=== PATIENT | male | born 1940 | race Caucasian/White ===

== ENCOUNTER 2017-09-03 11:45 | Emergency (ER) | payer MEDICARE ==
[~2017-09-03] VITALS: Ht 182.9 cm; Wt 140.6 kg
[2017-09-03 12:35] LABS: BASOPHILS # (AUTO) 0.1 (0.0-0.1); BASOPHILS % 0.6 % (0.0-1.0); EOSINOPHILS # (AUTO) 0.3 (0.0-0.4); EOSINOPHILS % 3.8 % (0.0-6.0); HEMATOCRIT 46.5 % (38.2-49.6); LYMPHOCYTES # (AUTO) 1.2 (1.0-3.2); LYMPHOCYTES % 14.7 % (18.0-39.1); MEAN CORPUSCULAR HEMOGLOBIN 28.5 pg (28-32); MEAN CORPUSCULAR HGB CONC 32.3 g/dL (31-35); MEAN CORPUSCULAR VOLUME 88.2 fL (81-99); MONOCYTES # (AUTO) 0.6 (0.2-0.8); MONOCYTES % 8.1 % (4.4-11.3); NEUTROPHILS # (AUTO) 5.8 (2.1-6.9); NEUTROPHILS % 72.5 % (38.7-80.0); PLATELET COUNT 257 x10e3/uL (140-360); RED BLOOD COUNT 5.27 x10e6/uL (4.3-5.7); RED CELL DISTRIBUTION WIDTH 14.4 % (11.7-14.4)
[2017-09-03 12:40] LABS: INR 1.81; PROTHROMBIN TIME 21.9 seconds (11.9-14.5)
[2017-09-03 12:41] LABS: PARTIAL THROMBOPLASTIN TIME 48.6 seconds (23.8-35.5)
[2017-09-03 12:48] LABS: ALANINE AMINOTRANSFERASE 14 IU/L (0-55); ALBUMIN 3.9 g/dL (3.5-5.0); ALBUMIN/GLOBULIN RATIO 0.9 (0.8-2.0); ALKALINE PHOSPHATASE 61 IU/L (40-150); ANION GAP 14.6 mmol/L (8-16); BLOOD UREA NITROGEN 25 mg/dL (7-26); BUN/CREATININE RATIO 26 (6-25); CALCIUM 9.6 mg/dL (8.4-10.2); CARBON DIOXIDE 27 mmol/L (22-29); CHLORIDE 102 mmol/L (98-107); CREATINE KINASE 40 IU/L (30-200); CREATININE, SERUM 0.96 mg/dL (0.72-1.25); EST GLOMERULAR FILTRATION RATE > 60 ML/MIN (60-); GLUCOSE 205 mg/dL (74-118); POTASSIUM 4.6 mmol/L (3.5-5.1); SODIUM 139 mmol/L (136-145)
[2017-09-03 12:54] LABS: BILIRUBIN,URINE NEGATIVE (NEGATIVE); CLARITY,URINE CLEAR (CLEAR); COLOR,URINE YELLOW (YELLOW); KETONES,URINE NEGATIVE (NEGATIVE); LEUKOCYTE ESTERASE ,URINE NEGATIVE (NEGATIVE); NITRITE,URINE NEGATIVE (NEGATIVE); URINE UROBILINOGEN 0.2 mg/dL (0.2 - 1)
[2017-09-03 12:56] LABS: PROTEIN,URINE DIPSTICK 2+ (NEGATIVE)
--- NOTE | 2017-09-03 13:09 | Diagnostic Imaging Report ---
PROCEDURE:CHEST SINGLE (PORTABLE) TECHNIQUE:Portable AP chest INDICATION:Fall COMPARISON:None. FINDINGS: 9 mm left lower lobe pulmonary nodule. Lungs otherwise clear. No pleural effusions. Mild cardiomegaly, aortic tortuosity and central vascular congestion. Grossly intact skeleton. CONCLUSION: No evidence of acute traumatic injury. 1 mm left lower lobe pulmonary nodule. Followup 2 view chest radiograph recommended in 3 months. Dictated by: Kishore Weston M.D. on 09/03/2017 at 13:18 Electronically approved by: Kishore Weston M.D. on 09/03/2017 at 13:18
--- NOTE | 2017-09-03 13:10 | Diagnostic Imaging Report ---
PROCEDURE:WRIST COMPLETE RIGHT TECHNIQUE:AP lateral and oblique views right wrist INDICATION:Fall COMPARISON:None. FINDINGS: See conclusion. CONCLUSION: 1. No evidence of acute traumatic injury. 2. Degenerative change at the radiocarpal joint and thumb base consistent with osteoarthritis. 3. Diffuse arteriosclerosis. Dictated by: Kishore Weston M.D. on 09/03/2017 at 13:19 Electronically approved by: Kishore Weston M.D. on 09/03/2017 at 13:19
--- NOTE | 2017-09-03 13:12 | Diagnostic Imaging Report ---
PROCEDURE:HAND RIGHT 3 VIEWS AP \T\ LAT COMPARISON:None. INDICATIONS:FALL FINDINGS: There are no acute displaced fractures, dislocations, lytic or blastic lesions. Degenerative changes most prominent at the first interphalangeal joint and first carpometacarpal joint. The bones are well-mineralized. Vascular calcifications noted. CONCLUSION: No acute radiographic abnormalities. Dictated by: Daniel Gleason M.D. on 09/03/2017 at 13:21 Electronically approved by: Daniel Gleason M.D. on 09/03/2017 at 13:21
[2017-09-03 13:15] LABS: BACTERIA,URINE RARE /HPF; EPITHELIAL CELLS,URINE RARE /LPF; MUCUS,URINE MODERATE (RARE); RBC,URINE 0-5 /HPF (0-5); WBC,URINE (MAN) 0-5 /HPF (0-5)
--- NOTE | 2017-09-03 14:05 | Diagnostic Imaging Report ---
History: Fell while getting out of a car landing on the right side Comparison studies:None Technique: Axial images were obtained from the brain, face and cervical spine. Coronal and sagittal reconstructions obtained from the axial data. Intravenous contrast: None Findings: Head CT: Scalp/skull: Small right frontal scalp hematoma. No fractures, blastic or lytic lesions. Extra-axial spaces: No masses. No fluid collections. Brain sulci: Mildly prominent. Ventricles: Moderately prominent. . Parenchyma: Few small hypodensities of the periventricular and deep white matter. No masses, hemorrhage, acute or chronic cortical vascular insults. Sellar/suprasellar region: No abnormalities Craniocervical junction: Patent foramen magnum. No Chiari one malformation. Atherosclerotic calcifications of the carotid siphons and vertebral arteries Maxillofacial CT: Soft tissues: Right preseptal and infraorbital hematoma. Bones: Deformity at the right nasal bone and nasal spine age indeterminate. Orbits: No abnormalities. Paranasal sinuses: Mild mucosal thickening at the bilateral maxillary and right sphenoid sinuses. Cervical spine CT: Fractures: None. Soft tissues: No gross abnormalities. Atlantoaxial articulation: No acute abnormality. Degenerative changes given by decreased predental space, sclerosis and marginal osteophytes. Alignment: Normal lordosis. No scoliosis. Cervicomedullary junction: No abnormalities. The foramen magnum is patent. Vertebrae: No infection or neoplasm. Degenerative changes: Disc degeneration with decreased intervertebral space from a C5-C7. Uncinate process hypertrophy and facet hypertrophy results in multilevel foraminal narrowing, moderate right at C3-4, severe right and moderate left at C5-6 and C6-7 no significant canal stenosis is seen. Incidental findings: Atherosclerotic calcifications of the carotid bulbs with retropharyngeal course of the bilateral internal carotid arteries. Impression: Head CT: 1. No acute intracranial abnormality. 2. Minimal microvascular ischemic changes of the white matter. 3. Moderate supratentorial ventriculomegaly, this could be related to central volume loss or normal pressure hydrocephalus, recommend clinical correlation. Facial CT: 1. Right preseptal and infraorbital hematoma. 2. Age indeterminant right nasal bone and nasal spine fracture. No other bony abnormality is seen. Cervical spine CT: 1. No acute cervical abnormalities. Degenerative changes as described above 2. Cannot exclude ligament, spinal cord and or vascular abnormalities on the basis of this examination. Signed by: DR Meliton Blake M.D. on 09/03/2017 2:01 PM
[2017-09-03] MEDS ORDERED: TRAMADOL HCL 50 MG TAB PO ONE (14:15)
[2017-09-03] MEDS ORDERED: TETANUS/DIPHTHERIA TOX ADULT 0.5 ML SYR IM ONE (14:15)
== END 2017-09-03 18:21 | disposition home or self-care (01) ==
LOC: ER 11:45
DX: S05.11XA Contusion of eyeball and orbital tissues, right eye, initial encounter (principal); S00.83XA Contusion of other part of head, initial encounter; S60.221A Contusion of right hand, initial encounter; S60.211A Contusion of right wrist, initial encounter; W01.0XXA Fall on same level from slipping, tripping and stumbling without subsequent striking against object, initial encounter; Y93.01 Activity, walking, marching and hiking; Y92.488 Other paved roadways as the place of occurrence of the external cause; I10 Essential (primary) hypertension; I48.91 Unspecified atrial fibrillation; N28.9 Disorder of kidney and ureter, unspecified
CPT/HCPCS: 36415; 70450; 70486; 71045; 72125; 80053; 81001; 82550; 82553; 83880; 84484; 85025; 85610; 85730; 87086; 90714; 93005; 99284

== ENCOUNTER 2023-01-22 11:48 | Inpatient (IN) | payer MEDICARE, OTHER ==
[~2023-01-22] VITALS: Ht 182.9 cm; Wt 113.4 kg
[2023-01-22] MEDS ORDERED: LIDOCAINE JELLY 2% 10ML URO-JET TOP ONE (12:15)
[2023-01-22 13:47] LABS: BASOPHILS # (AUTO) 0.1 (0.0-0.1); BASOPHILS % 0.8 % (0.0-1.0); EOSINOPHILS # (AUTO) 0.4 (0.0-0.4); EOSINOPHILS % 6.1 % (0.0-6.0); HEMATOCRIT 43.7 % (38.2-49.6); LYMPHOCYTES % 16.3 % (18.0-39.1); MEAN CORPUSCULAR HEMOGLOBIN 28.3 pg (28-32); MEAN CORPUSCULAR VOLUME 88.3 fL (81-99); MONOCYTES # (AUTO) 0.6 (0.2-0.8); MONOCYTES % 9.9 % (4.4-11.3); NEUTROPHILS # (AUTO) 4.2 (2.1-6.9); NEUTROPHILS % 66.6 % (38.7-80.0); PLATELET COUNT 197 x10e3/uL (140-360); RED BLOOD COUNT 4.95 x10e6/uL (4.3-5.7); RED CELL DISTRIBUTION WIDTH 14.2 % (11.7-14.4)
[2023-01-22 13:49] LABS: INR 0.94; PROTHROMBIN TIME 13.1 seconds (11.9-14.5)
[2023-01-22 13:51] LABS: PARTIAL THROMBOPLASTIN TIME 35.2 seconds (23.8-35.5)
[2023-01-22 14:00] LABS: ALANINE AMINOTRANSFERASE 14 IU/L (0-55); ALBUMIN 3.4 g/dL (3.5-5.0); ALKALINE PHOSPHATASE 74 IU/L (40-150); ANION GAP 12.4 mmol/L (8-16); BLOOD UREA NITROGEN 22 mg/dL (7-26); BUN/CREATININE RATIO 28 (6-25); CALCIUM 8.9 mg/dL (8.4-10.2); CARBON DIOXIDE 28 mmol/L (22-29); CHLORIDE 104 mmol/L (98-107); GLUCOSE 147 mg/dL (74-118); MAGNESIUM 1.9 MG/DL (1.3-2.1); POTASSIUM 4.4 mmol/L (3.5-5.1); SODIUM 140 mmol/L (136-145)
[2023-01-22] MEDS ORDERED: SODIUM CHLORIDE 0.9% 250ML 250 ML ONE (14:07)
[2023-01-22] MEDS ORDERED: IOPAMIDOL 370 MG/ML 100 ML INFUS..BTL INJ ONE ×2 (14:07→14:32)
[2023-01-22 15:33] LABS: CLARITY,URINE TURBID (CLEAR); COLOR,URINE RED (YELLOW)
[2023-01-22 15:47] LABS: BACTERIA,URINE RARE /HPF; KETONES,URINE NEGATIVE (NEGATIVE); LEUKOCYTE ESTERASE ,URINE NEGATIVE (NEGATIVE); NITRITE,URINE NEGATIVE (NEGATIVE); PROTEIN,URINE DIPSTICK 2+ (NEGATIVE); RBC,URINE >50 /HPF (0-5); URINE UROBILINOGEN 0.2 mg/dL (0.2 - 1); WBC,URINE (MAN) 0-5 /HPF (0-5)
[2023-01-22] MEDS ORDERED: SODIUM CHLORIDE 0.9% 1000ML 1,000 ML IV ONE (17:00)
[2023-01-22] MEDS ORDERED: ONDANSETRON HCL INJ 2MG/ML 2ML 2 MG/ML VIAL IV PRN (17:00)
[2023-01-23] VITALS (7 sets, daily range): BP systolic 119–163; BP diastolic 45–99; PULSE 69–89; RESP 16–20; TEMP 97.7–100.2; O2SAT 94–98
[2023-01-23] MEDS ORDERED: POLYETHYLENE GL17 GM PO (02:50)
[2023-01-23] MEDS ORDERED: ARICEPT5 MG PO (02:50)
[2023-01-23] MEDS ORDERED: PANTOPRAZOLE SO40 MG PO (02:50)
[2023-01-23] MEDS ORDERED: FERROUS SULFAT325 MG PO (02:50)
[2023-01-23] MEDS ORDERED: MIRTAZAPINE15 MG PO (02:50)
[2023-01-23] MEDS ORDERED: MELATONIN3 MG PO (02:50)
[2023-01-23] MEDS ORDERED: SORE THROAT SP177 ML (02:50)
[2023-01-23] MEDS ORDERED: ONDANSETRON ODT4 MG PO (02:50)
[2023-01-23] MEDS ORDERED: TYLENOL325 MG PO (02:50)
[2023-01-23] MEDS ORDERED: PLAVIX75 MG PO (02:50)
[2023-01-23] MEDS ORDERED: ASPIRIN81 MG PO (02:50)
[2023-01-23] MEDS ORDERED: LANTUS 3ML100 UNITS/ SQ (02:50)
[2023-01-23] MEDS ORDERED: BENZONATATE200 MG PO (02:50)
[2023-01-23] MEDS ORDERED: ADMELOG SO100 UNIT/1 SQ (02:50)
[2023-01-23] MEDS ORDERED: NAMENDA XR28 MG PO (02:50)
[2023-01-23] MEDS ORDERED: COMBIVENT RESPIM4 GM IH (02:50)
[2023-01-23] MEDS: ACETAMINOPHEN 325 MG TAB PO PRN ×2 (03:53→15:02)
[2023-01-23 05:03] LABS: BASOPHILS # (AUTO) 0.1 (0.0-0.1); BASOPHILS % 0.5 % (0.0-1.0); EOSINOPHILS # (AUTO) 0.1 (0.0-0.4); EOSINOPHILS % 1.1 % (0.0-6.0); HEMATOCRIT 41.9 % (38.2-49.6); HEMOGLOBIN 13.5 g/dL (14.0-18.0); LYMPHOCYTES # (AUTO) 0.9 (1.0-3.2); MEAN CORPUSCULAR HEMOGLOBIN 28.1 pg (28-32); MEAN CORPUSCULAR HGB CONC 32.2 g/dL (31-35); MEAN CORPUSCULAR VOLUME 87.1 fL (81-99); MONOCYTES # (AUTO) 1.1 (0.2-0.8); NEUTROPHILS # (AUTO) 10.2 (2.1-6.9); NEUTROPHILS % 81.9 % (38.7-80.0); PLATELET COUNT 196 x10e3/uL (140-360); RED BLOOD COUNT 4.81 x10e6/uL (4.3-5.7); RED CELL DISTRIBUTION WIDTH 14.3 % (11.7-14.4)
[2023-01-23 05:21] LABS: ALBUMIN 3.3 g/dL (3.5-5.0); CALCIUM 8.8 mg/dL (8.4-10.2); CREATININE, SERUM 0.67 mg/dL (0.72-1.25)
[2023-01-23 05:41] LABS: CHOL/HDL RATIO 4.7 (3.9-4.7); MAGNESIUM 1.8 MG/DL (1.3-2.1)
[2023-01-23 06:02] LABS: THYROID STIMULATING HORMONE 1.108 uIU/mL (0.350-4.940)
[2023-01-23] MEDS ORDERED: PROPOFOL IV EMULSION 10 MG/ML 20 ML VIAL ONE (12:25)
[2023-01-23] MEDS ORDERED: LIDOCAINE HCL 2% LOCAL INJ 5 ML SDV VIAL INJ ONE (12:25)
[2023-01-23] MEDS ORDERED: GLYCOPYRROLATE INJ 0.2 MG/ML VIAL ONE (12:25)
[2023-01-23] MEDS ORDERED: POVIDONE IODINE 0.05% 0.05 % ML PO ONE (12:25)
[2023-01-23] MEDS ORDERED: ONDANSETRON HCL INJ 2MG/ML 2ML 2 MG/ML VIAL ONE (12:25)
[2023-01-23] MEDS ORDERED: FAMOTIDINE 20 MG/2 ML VIAL IV ONE (12:25)
[2023-01-23] MEDS ORDERED: DEXAMETHASONE SOD PHOS INJ 4 MG/ML SDV ONE (12:25)
[2023-01-23] MEDS ORDERED: IPRATROPIUM/ALBUTEROL SULFATE 4 GM INH INH PRN (17:00)
[2023-01-23] MEDS ORDERED: BENZONATATE 100 MG CAP PO PRN (17:00)
[2023-01-23] MEDS ORDERED: DEXTROSE 50% SYRINGE 50 ML IV PRN (17:00)
[2023-01-23] MEDS: PANTOPRAZOLE SOD 40 MG TABEC PO SCH (17:24)
[2023-01-23] MEDS: INSULIN LISPRO 100 UNIT/1 ML 3ML VIAL SQ SCH (21:00)
[2023-01-23] MEDS: MEMANTINE 10 MG TAB PO SCH (22:12)
[2023-01-23] MEDS: MELATONIN 3 MG TAB PO SCH (22:12)
[2023-01-23] MEDS: MIRTAZAPINE 15 MG TAB PO SCH (22:13)
[2023-01-24] VITALS (7 sets, daily range): BP systolic 112–167; BP diastolic 50–109; PULSE 59–101; RESP 18–20; TEMP 97.5–97.9; O2SAT 95–98
[2023-01-24] MEDS: ACETAMINOPHEN 325 MG TAB PO PRN ×3 (05:19→20:59)
[2023-01-24] MEDS: PANTOPRAZOLE SOD 40 MG TABEC PO SCH ×2 (08:06→16:40)
[2023-01-24] MEDS: FERROUS SULFATE 325 MG TAB PO SCH (08:06)
[2023-01-24] MEDS: INSULIN LISPRO 100 UNIT/1 ML 3ML VIAL SQ SCH ×4 (08:14→21:00)
[2023-01-24] MEDS ORDERED: MEMANTINE HCL 28 MG PO SCH (09:00)
[2023-01-24] MEDS ORDERED: ONDANSETRON HCL 4 MG ORAL DISINTEGRATING TAB PO PRN (11:00)
[2023-01-24] MEDS: MEMANTINE 10 MG TAB PO SCH (20:58)
[2023-01-24] MEDS: DONEPEZIL HCL 5 MG TAB PO SCH (20:58)
[2023-01-24] MEDS: MELATONIN 3 MG TAB PO SCH (20:59)
[2023-01-24] MEDS: MIRTAZAPINE 15 MG TAB PO SCH (21:00)
[2023-01-25] VITALS (9 sets, daily range): BP systolic 120–163; BP diastolic 61–119; PULSE 59–93; RESP 17–18; TEMP 97.6–98.5; O2SAT 97–100
[2023-01-25 05:54] LABS: BASOPHILS # (AUTO) 0.1 (0.0-0.1); BASOPHILS % 0.6 % (0.0-1.0); EOSINOPHILS # (AUTO) 0.5 (0.0-0.4); EOSINOPHILS % 6.1 % (0.0-6.0); HEMATOCRIT 39.3 % (38.2-49.6); HEMOGLOBIN 12.7 g/dL (14.0-18.0); LYMPHOCYTES # (AUTO) 1.3 (1.0-3.2); LYMPHOCYTES % 16.7 % (18.0-39.1); MEAN CORPUSCULAR HEMOGLOBIN 28.5 pg (28-32); MEAN CORPUSCULAR HGB CONC 32.3 g/dL (31-35); MEAN CORPUSCULAR VOLUME 88.3 fL (81-99); MONOCYTES # (AUTO) 0.6 (0.2-0.8); NEUTROPHILS # (AUTO) 5.4 (2.1-6.9); NEUTROPHILS % 68.2 % (38.7-80.0); PLATELET COUNT 186 x10e3/uL (140-360); RED BLOOD COUNT 4.45 x10e6/uL (4.3-5.7); RED CELL DISTRIBUTION WIDTH 14.1 % (11.7-14.4)
[2023-01-25 06:08] LABS: CALCIUM 8.9 mg/dL (8.4-10.2); CREATININE, SERUM 0.73 mg/dL (0.72-1.25)
[2023-01-25] MEDS: PANTOPRAZOLE SOD 40 MG TABEC PO SCH ×2 (08:57→16:48)
[2023-01-25] MEDS: FERROUS SULFATE 325 MG TAB PO SCH (08:58)
[2023-01-25] MEDS: INSULIN LISPRO 100 UNIT/1 ML 3ML VIAL SQ SCH ×4 (09:01→21:06)
[2023-01-25] MEDS: CARVEDILOL 3.125 MG TAB PO SCH (17:43)
[2023-01-25] MEDS: MIRTAZAPINE 15 MG TAB PO SCH (21:04)
[2023-01-25] MEDS: MEMANTINE 10 MG TAB PO SCH (21:05)
[2023-01-25] MEDS: DONEPEZIL HCL 5 MG TAB PO SCH (21:05)
[2023-01-25] MEDS: MELATONIN 3 MG TAB PO SCH (21:05)
[2023-01-26] VITALS (7 sets, daily range): BP systolic 108–177; BP diastolic 62–87; PULSE 66–88; RESP 15–18; TEMP 97.2–98.5; O2SAT 97–99
[2023-01-26 05:46] LABS: BASOPHILS # (AUTO) 0.1 (0.0-0.1); BASOPHILS % 0.9 % (0.0-1.0); EOSINOPHILS # (AUTO) 0.5 (0.0-0.4); EOSINOPHILS % 6.7 % (0.0-6.0); HEMATOCRIT 38.5 % (38.2-49.6); HEMOGLOBIN 12.2 g/dL (14.0-18.0); LYMPHOCYTES # (AUTO) 1.2 (1.0-3.2); MEAN CORPUSCULAR HEMOGLOBIN 28.8 pg (28-32); MEAN CORPUSCULAR HGB CONC 31.7 g/dL (31-35); MEAN CORPUSCULAR VOLUME 90.8 fL (81-99); MONOCYTES # (AUTO) 0.7 (0.2-0.8); MONOCYTES % 9.1 % (4.4-11.3); NEUTROPHILS # (AUTO) 5.3 (2.1-6.9); PLATELET COUNT 186 x10e3/uL (140-360); RED BLOOD COUNT 4.24 x10e6/uL (4.3-5.7)
[2023-01-26 06:11] LABS: ANION GAP 16.1 mmol/L (8-16); CALCIUM 8.8 mg/dL (8.4-10.2); CREATININE, SERUM 0.72 mg/dL (0.72-1.25); POTASSIUM 4.1 mmol/L (3.5-5.1)
[2023-01-26] MEDS: FERROUS SULFATE 325 MG TAB PO SCH (08:19)
[2023-01-26] MEDS: CARVEDILOL 3.125 MG TAB PO SCH ×2 (08:19→16:53)
[2023-01-26] MEDS: PANTOPRAZOLE SOD 40 MG TABEC PO SCH ×2 (08:19→16:52)
[2023-01-26] MEDS: INSULIN LISPRO 100 UNIT/1 ML 3ML VIAL SQ SCH ×4 (08:26→20:40)
[2023-01-26] MEDS ORDERED: DEXTROSE 50% SYRINGE 50 ML IV PRN (16:30)
[2023-01-26] MEDS: OFLOXACIN 0.3% (OTIC SOL) 5 ML BTL OT SCH (16:54)
[2023-01-26] MEDS: MIRTAZAPINE 15 MG TAB PO SCH (20:37)
[2023-01-26] MEDS: MELATONIN 3 MG TAB PO SCH (20:37)
[2023-01-26] MEDS: MEMANTINE 10 MG TAB PO SCH (20:38)
[2023-01-26] MEDS: DONEPEZIL HCL 5 MG TAB PO SCH (20:38)
[2023-01-27] VITALS (8 sets, daily range): BP systolic 108–144; BP diastolic 54–76; PULSE 62–70; RESP 18–21; TEMP 97.9–98.9; O2SAT 97–100
[2023-01-27] MEDS: PANTOPRAZOLE SOD 40 MG TABEC PO SCH ×2 (07:30→17:18)
[2023-01-27] MEDS: INSULIN LISPRO 100 UNIT/1 ML 3ML VIAL SQ SCH ×4 (07:30→20:57)
[2023-01-27] MEDS: CARVEDILOL 3.125 MG TAB PO SCH ×2 (09:00→17:19)
[2023-01-27] MEDS: FERROUS SULFATE 325 MG TAB PO SCH (09:00)
[2023-01-27] MEDS: OFLOXACIN 0.3% (OTIC SOL) 5 ML BTL OT SCH ×2 (09:25→17:20)
[2023-01-27] MEDS ORDERED: FENTANYL CITRATE/PF 100MCG/2 ML INJ ONE (13:58)
[2023-01-27] MEDS ORDERED: IOPAMIDOL 610MG/1ML 300 MG/ML VIAL IV ONE (14:32)
[2023-01-27] MEDS ORDERED: PHENAZOPYRIDINE HCL 100 MG TAB PO PRN (17:45)
[2023-01-27] MEDS: ACETAMINOPHEN/CODEINE 300MG - 30MG TAB PO PRN (17:52)
[2023-01-27] MEDS: MIRTAZAPINE 15 MG TAB PO SCH (20:53)
[2023-01-27] MEDS: MELATONIN 3 MG TAB PO SCH (20:53)
[2023-01-27] MEDS: DONEPEZIL HCL 5 MG TAB PO SCH (20:53)
[2023-01-27] MEDS: MEMANTINE 10 MG TAB PO SCH (20:53)
[2023-01-28] VITALS (7 sets, daily range): BP systolic 96–147; BP diastolic 35–75; PULSE 54–63; RESP 16–21; TEMP 97.5–98; O2SAT 98–100
[2023-01-28 05:38] LABS: BASOPHILS % 0.5 % (0.0-1.0); EOSINOPHILS % 0.1 % (0.0-6.0); HEMATOCRIT 41.5 % (38.2-49.6); HEMOGLOBIN 13.1 g/dL (14.0-18.0); LYMPHOCYTES # (AUTO) 0.9 (1.0-3.2); LYMPHOCYTES % 10.8 % (18.0-39.1); MEAN CORPUSCULAR HEMOGLOBIN 28.4 pg (28-32); MEAN CORPUSCULAR HGB CONC 31.6 g/dL (31-35); MEAN CORPUSCULAR VOLUME 89.8 fL (81-99); MONOCYTES # (AUTO) 0.4 (0.2-0.8); MONOCYTES % 4.6 % (4.4-11.3); NEUTROPHILS # (AUTO) 7.1 (2.1-6.9); NEUTROPHILS % 83.5 % (38.7-80.0); PLATELET COUNT 217 x10e3/uL (140-360); RED BLOOD COUNT 4.62 x10e6/uL (4.3-5.7); RED CELL DISTRIBUTION WIDTH 13.7 % (11.7-14.4)
[2023-01-28 06:00] LABS: ANION GAP 16.3 mmol/L (8-16); CALCIUM 9.1 mg/dL (8.4-10.2); CREATININE, SERUM 0.78 mg/dL (0.72-1.25); POTASSIUM 4.3 mmol/L (3.5-5.1)
[2023-01-28] MEDS: INSULIN LISPRO 100 UNIT/1 ML 3ML VIAL SQ SCH ×3 (08:41→17:57)
[2023-01-28] MEDS: PANTOPRAZOLE SOD 40 MG TABEC PO SCH ×2 (08:41→17:54)
[2023-01-28] MEDS: CARVEDILOL 3.125 MG TAB PO SCH ×2 (09:00→17:55)
[2023-01-28] MEDS: OFLOXACIN 0.3% (OTIC SOL) 5 ML BTL OT SCH ×3 (09:00→17:00)
[2023-01-28] MEDS: FERROUS SULFATE 325 MG TAB PO SCH (09:03)
[2023-01-28] MEDS: ACETAMINOPHEN/CODEINE 300MG - 30MG TAB PO PRN (09:39)
== END 2023-01-28 20:15 | DRG 670 ==
LOC: ER 11:50 → ERHOLD 17:05 → MED/SURG 23:42 → OBSVTOIN 01-23 16:09
PROVIDERS: ADMIT Internal Medicine; ATTEND Internal Medicine
PROC: 0TBB8ZX Excision of Bladder, Via Natural or Artificial Opening Endoscopic, Diagnostic (ICD-10-PCS; principal; 2023-01-27 14:39)
PROC: BT14ZZZ Fluoroscopy of Kidneys, Ureters and Bladder (ICD-10-PCS; 2023-01-27 14:39)
DX: N20.0 Calculus of kidney (principal); R31.9 Hematuria, unspecified; I11.9 Hypertensive heart disease without heart failure; F03.90 Unspecified dementia, unspecified severity, without behavioral disturbance, psychotic disturbance, mood disturbance, and anxiety; E11.9 Type 2 diabetes mellitus without complications; I48.0 Paroxysmal atrial fibrillation; R32 Unspecified urinary incontinence; D64.9 Anemia, unspecified; F32.A Depression, unspecified; K21.9 Gastro-esophageal reflux disease without esophagitis; E78.5 Hyperlipidemia, unspecified; G47.00 Insomnia, unspecified; Z68.33 Body mass index [BMI] 33.0-33.9, adult; E66.01 Morbid (severe) obesity due to excess calories; D72.829 Elevated white blood cell count, unspecified; Z88.0 Allergy status to penicillin; Z79.82 Long term (current) use of aspirin; Z79.02 Long term (current) use of antithrombotics/antiplatelets; Z86.711 Personal history of pulmonary embolism; Z86.718 Personal history of other venous thrombosis and embolism; Z20.822 Contact with and (suspected) exposure to COVID-19
CPT/HCPCS: 36415; 71045; 74178; 76000; 80048; 80053; 80061; 81001; 82948; 83036; 83735; 83880; 84443; 84484; 85025; 85610; 85730; 87086; 88304; 88307; 88342; 93005; 93306; 96372; 99284; C1758; G0378; J0696; J1100; J2001; J2405; J7030; J7050; Q0162; Q9967